=== PATIENT | male | born 1930 | race Caucasian/White ===

== ENCOUNTER → 2018-03-07 | Outpatient (CLI) | payer OTHER, MEDICARE ==
[~2018-03-07] MED LIST: ASPIR 8181 MG PO; HYDROCODONE-AP1 EAC6 PO; MIRALAX17 GM PO; XARELTO10 M1 PO; [UNRECOGNIZED DRUG - OTHER]
== END ==
LOC: CAT 09:13
DX: J98.11 Atelectasis (principal); N28.1 Cyst of kidney, acquired; K80.80 Other cholelithiasis without obstruction; E04.1 Nontoxic single thyroid nodule; R91.8 Other nonspecific abnormal finding of lung field; R59.0 Localized enlarged lymph nodes

== ENCOUNTER 2018-07-09 16:41 | Emergency (ER) | payer OTHER, MEDICARE ==
[~2018-07-09] VITALS: Ht 182.9 cm; Wt 77.1 kg
[2018-07-09] MEDS ORDERED: CARAFATE 1 GM TA1 G1 PO (17:29)
[2018-07-09] MEDS ORDERED: PROTONIX40 MG PO (17:29)
== END 2018-07-09 18:05 | disposition home or self-care (01) ==
LOC: ER 16:41
DX: K20.9 Esophagitis, unspecified (principal); M19.90 Unspecified osteoarthritis, unspecified site; Z87.891 Personal history of nicotine dependence

== ENCOUNTER 2018-07-14 10:33 | Inpatient (IN) | payer OTHER, MEDICARE ==
[~2018-07-14] VITALS: Ht 175.3 cm; Wt 70.3 kg
--- NOTE | ~2018-07-14 | EKG ---
[address] [address] ELECTROCARDIOGRAM REPORT Name: ADRIEL QUINTERO Room #: 240-P DIS IN M.R.#: [id number] Admission: 07/14/18 Attend Phys: Umang Cruz MD Discharge: 07/21/18 Date of : 32 Report #: [id number] THIS REPORT FOR: //name// [facility] Test Date: 2018-07-21 Test Time: 11:01:28 Pat Name: ADRIEL QUINTERO Department: Room: 240 P Gender: M Roll Capper: Maryjane PAYNE : 1930 Requested By: Gabino Darby Order Number: [id number] MD: Elier Paulson Measurements Intervals [place] Rate: 86 P: 63 WV: 193 QRS: 70 QRSD: 92 T: 85 QT: 322 QTc: 385 Interpretive Statements Sinus tachycardia Motion artifact Compared to ECG 07/14/2018 10:53:35 Sinus rhythm no longer present ST (T wave) deviation no longer present Electronically Signed On 07-22-2018 17:04:46 CDT by Elier Paulson [email or web address] <ELECTRONICALLY SIGNED> By: Elier Paulson MD 07/22/18 1704 110 110 Elier Paulson MD /EPI
--- NOTE | ~2018-07-14 | EKG ---
[address] [address] ELECTROCARDIOGRAM REPORT Name: ADRIEL QUINTERO Room #: 240-P DIS IN M.R.#: [id number] Admission: 07/14/18 Attend Phys: Umang Cruz MD Discharge: 07/21/18 Date of : 32 Report #: [id number] THIS REPORT FOR: //name// [facility] Test Date: 2018-07-21 Test Time: 11:38:27 Pat Name: ADRIEL QUINTERO Department: Room: 240 P Gender: M Director Medical Safety: Maryjane PAYNE : 1930 Requested By: Gabino Darby Order Number: [id number] MD: Elier Paulson Measurements Intervals [place] Rate: 94 P: 65 NE: 169 QRS: 71 QRSD: 92 T: 83 QT: 311 QTc: 389 Interpretive Statements Sinus rhythm Atrial premature complex Low voltage, precordial leads Compared to ECG 07/14/2018 10:53:35 Atrial premature complex(es) now present Low QRS voltage now present ST (T wave) deviation no longer present Electronically Signed On 07-22-2018 17:05:06 CDT by Elier Paulson [email or web address] <ELECTRONICALLY SIGNED> By: Elier Paulson MD 07/22/18 1705 1138 1138 Elier Paulson MD /EPI
--- NOTE | ~2018-07-14 | EKG ---
[address] [address] ELECTROCARDIOGRAM REPORT Name: ADRIEL QUINTERO Room #: 240-P DIS IN M.R.#: [id number] Admission: 07/14/18 Attend Phys: Umang Cruz MD Discharge: 07/21/18 Date of : 32 Report #: [id number] THIS REPORT FOR: //name// [facility] Test Date: 2018-07-21 Test Time: 12:15:14 Pat Name: ADRIEL QUINTERO Department: Room: 240 P Gender: M Case Operator: Maryjane PAYNE : 1930 Requested By: Gabino Darby Order Number: [id number] MD: Elier Paulson Measurements Intervals [place] Rate: 68 P: [place]: QRS: 73 QRSD: 93 T: 86 QT: 335 QTc: 357 Interpretive Statements Sinus with PACs Low voltage, precordial leads Compared to ECG 07/14/2018 10:53:35 Low QRS voltage now present ST (T wave) deviation no longer present Electronically Signed On 07-22-2018 17:05:35 CDT by Elier Paulson [email or web address] <ELECTRONICALLY SIGNED> By: Elier Paulson MD 07/22/18 1705 1215 Elier Paulson MD /EPI
--- NOTE | ~2018-07-14 | HC ---
[facility] [place] [place] [address] CONSULTATION Name: ADRIEL QUINTERO Room #: 354-P ADM IN M.R.#: [id number] Admission: 07/14/18 Attend Phys: Umang Cruz MD Discharge: Date of : 32 Report #: [id number] THIS REPORT FOR: //name// CC: Umang Cruz DATE OF SERVICE: 07/16/2018 REASON FOR CONSULTATION: Elevated creatinine. HISTORY OF PRESENT ILLNESS: An 87-year-old patient, very hard of hearing, very poor historian. Family is in the room helping to some degree with the details. The patient has a 1-week history of difficulty with swallowing, shortness of breath, was initially treated with doxycycline, his throat tightened and he developed a rash. He was treated with a second antibiotic with little relief, became progressively short winded and eventually was admitted to the hospital 2 days ago. The rash has improved, but he has been found to have a creatinine of 3, elevated from prior baseline in our records at this hospital of 1.6 two years ago. He has had clearcut prosthetic hypertrophy symptoms with difficulty with urination, hesitancy, urgency and has had for some time. These symptoms have also been worsening. He has had trouble with intake as well over the last week or so. He has received some IV fluids since being admitted and also diagnosed with pneumonitis and there is swelling and lymphadenopathy about the head and neck as well as thyroid abnormalities as well. PAST MEDICAL HISTORY: He has had previous femur fracture. 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 Home medications have included Xarelto, I am unclear as to the indication for that; aspirin, hydrocodone. ALLERGIES: REPORTED TO DOXYCYCLINE AND PENICILLIN. SOCIAL HISTORY: He was a former smoker. Occasional drink of alcohol. REVIEW OF SYSTEMS: GENERAL: He has been feeling poorly. EYES: His vision has been reasonably good. ENT: His hearing is very poor. He has had a lot of trouble with swallowing, swelling in his neck, shortness of breath. ENDOCRINE: No history of diabetes. RESPIRATORY: He has become progressively short winded with wheezing. CARDIAC: No history of ME, chest pain, angina. GASTROINTESTINAL: Poor intake and appetite. GENITOURINARY: He has had the frequency and urgency and difficulty with urination. NEUROLOGIC: Just generalized weakness. [facility] [address] [place] [address] CONSULTATION Name: ADRIEL QUINTERO Room #: 354-P [facility] IN .R.#: [id number] Admission: 07/14/18 Attend Phys: Umang Cruz MD Discharge: Date of : 32 Report #: [id number] PHYSICAL EXAMINATION: GENERAL: This is an elderly, chronically ill-appearing gentleman, currently blood pressure is 157/77. SKIN: Shows an erythematous truncal rash. SKELETAL: Well developed, well nourished. HEENT: Extraocular movements are full. Vision intact. Hearing is poor. Mucous membranes are dry. Neck is somewhat stiff. CHEST: Shows diffuse wheezing. HEART: Regular, but distant. ABDOMEN: Soft and nontender. EXTREMITIES: Show trace peripheral edema. LABORATORY DATA: No urinalysis available. Hemoglobin 11.9, sodium 140, potassium 4.2, chloride 107, bicarbonate 16, creatinine 3. White count 10.7, hemoglobin 11.9. ASSESSMENT AND PLAN: 1. Renal insufficiency. I believe this is likely largely chronic. I am unsure though his renal sonogram did show bilateral caliectasis suggestive of obstruction, possibly he is not emptying his bladder. We will place a Christy for completeness. I will give him some IV fluids with bicarb as he has developed a metabolic acidosis as well. He will need an ENT consult. I am little worried about generalized lymphoma. He has lymphadenopathy in the abdomen, the mediastinum and the head and neck, and the axillary regions. Systemic infections could certainly be playing some role here as well. He also has thyroid abnormalities and difficulty swallowing and certainly an infection in the head and neck region could be playing a large role in this case as well. For completeness, we will get urinalysis, paraprotein studies, urine protein studies, and possibly further workup for pulmonary renal syndromes if indicated. We will follow along. By: 1713 0131 Grant Odonnell MD /nt
--- NOTE | ~2018-07-14 | EKG ---
[facility] [address] [facility] [place] [address] ELECTROCARDIOGRAM REPORT Name: ADRIEL QUINTERO Room #: 240-P DIS IN M.R.#: [id number] Admission: 07/14/18 Attend Phys: Umang Cruz MD Discharge: 07/21/18 Date of : 32 Report #: [id number] THIS REPORT FOR: //name// [facility] Test Date: 2018-07-21 Test Time: 10:00:59 Pat Name: ADRIEL QUINTERO Department: Room: 240 P Gender: M In Home Sales Representative: MARINA : 1930 Requested By: Gabino Darby Order Number: [id number] MD: Elier Paulson Measurements Intervals [place] Rate: 151 P: [place]: QRS: 62 QRSD: 111 T: 11 QT: 274 QTc: 435 Interpretive Statements Atrial fibrillation with rapid V-rate Compared to ECG 07/14/2018 10:53:35 Sinus rhythm no longer present Electronically Signed On 07-22-2018 17:03:50 CDT by Elier Paulson [email or web address] <ELECTRONICALLY SIGNED> By: Elier Paulson MD 07/22/18 1703 [address] Paulson MD /PABLO
--- NOTE | ~2018-07-14 | EKG ---
[facility] [address] [place] [address] ELECTROCARDIOGRAM REPORT Name: ADRIEL QUINTERO Room #: 240-P ADM IN M.R.#: [id number] Admission: 07/14/18 Attend Phys: Umang Cruz MD Discharge: Date of : 32 Report #: [id number] THIS REPORT FOR: //name// [facility] Test Date: 2018-07-21 Test Time: 10:00:59 Pat Name: ADRIEL QUINTERO Department: Room: 240 P Gender: M Steward/Stewardess Third: MARINA : 1930 Requested By: Gabino Darby Order Number: [id number] MD: Measurements Intervals [place] Rate: 151 P: CT: QRS: 62 QRSD: 111 T: 11 QT: 274 QTc: 435 Interpretive Statements Atrial fibrillation with rapid V-rate Ventricular premature complex Minimal ST depression, inferior leads Compared to ECG 07/14/2018 10:53:35 Ventricular premature complex(es) now present Sinus rhythm no longer present ST (T wave) deviation still present [email or web address] By: [address] [facility] Epiphany Epiphany, /EPI
--- NOTE | ~2018-07-14 | 2DMMODE ---
[facility] [place] [address] 2 D/M-MODE ECHOCARDIOGRAM Name: ADRIEL QUINTERO Room #: 240-P ADM IN ..#: [id number] Admission: 07/14/18 Attend Phys: Umang Cruz, Discharge: Date of : 32 Date of Service: 07/21/18 1212 Report #: [id number] THIS REPORT FOR: //name// APPROVED REPORT Study performed: 07/21/2018 11:09:36 EXAM: Limited 2D, Doppler, and color-flow Echocardiogram Patient Location: ICU Room #: 240 Status: routine BSA: 1.85 HR: 61 bpm BP: 74/49 mmHg Rhythm: NSR Other Information Study Quality: Fair Technically limited study due to very limited window availability, unable to position, in ICU on vent.. Indications Limited echo status post cardiac arrest x3. Tricuspid Valve TR Peak Ronald.: 3.70 m/s RAP Estimate: 10.00 mmHg TR Peak Gr.: 54.00 mmHg PA Pressure: 55.00 mmHg Left Ventricle The left ventricle is normal size. Left ventricular systolic function is normal. LVEF is 50-55%. Right Ventricle The right ventricle is normal size. The right ventricular systolic function is normal. Aortic Valve The aortic valve is normal in structure. No aortic regurgitation is present. There is no aortic valvular stenosis. Mitral Valve The mitral valve is normal in structure. Trace mitral regurgitation. Tricuspid Valve [facility] [address] [place] [address] 2 D/M-MODE ECHOCARDIOGRAM Name: ADRIEL QUINTERO Room #: 240-P ADM IN M.R.#: [id number] Admission: 07/14/18 Attend Phys: Umang Cruz, Discharge: Date of : 32 Date of Service: 07/21/18 121 Report #: [id number] The tricuspid valve is normal in structure. Mild to moderate tricuspid regurgitation. Estimated PAP is 55mmHg. Pericardium Small pericardial effusion noted. <Conclusion> The left ventricle is normal size. Left ventricular systolic function is normal. The right ventricle is normal size. The aortic valve is normal in structure. Trace mitral regurgitation. Mild to moderate tricuspid regurgitation. Estimated PAP is 55mmHg. <ELECTRONICALLY SIGNED> By: Luis Eduardo Lopez MD 07/21/181211 11 11 Luis Eduardo Lopez MD /INF
--- NOTE | ~2018-07-14 | O ---
[facility] [place] [address] OPERATIVE REPORT Name: ADRIEL QUINTERO Room #: 240-P [facility] IN M.R.#: [id number] Admission: 07/14/18 Attend Phys: Umang Cruz MD Discharge: 07/21/18 Date of : 32 Report #: [id number] THIS REPORT FOR: //name// CC: Umang Cruz CLINICAL HISTORY: An 88-year-old white male with acute respiratory distress. The patient was intubated with a 7.5 mm ET tube. DESCRIPTION OF PROCEDURE: The patient was laid supine. He was given total of 5 mL of Diprivan. He was then bagged. A GlideScope was then used to visualize the vocal cord. A 7.5 mm ET tube was placed with stylet without difficulty. The ET tube was secured at approximately 24 cm at the lip. Portable chest x-ray showed ET tube at 1 cm above the diana. ET tube was then withdrawn approximately 2 cm. Otherwise, the patient tolerated the procedure well. <ELECTRONICALLY SIGNED> By: Gabino Darby MD 07/22/18 1641 1459 2188 Gabino Darby MD /nt
--- NOTE | ~2018-07-14 | PATH ---
[facility] [address] [place] [address] PATHOLOGY RPT PROCEDURE Name: ADRIEL QUINTERO Room #: 240-P [facility] IN M.R.#: [id number] Admission: 07/14/18 Date of : 32 Discharge: 07/21/18 Report #: [id number] Path Case #: [id number] [facility] Accession Number: [id number] . 01 Material submitted: . LT RENAL BX . 01 Clinical history: . Difficulty breathing, R/O lymphoma, R/O Jovan's . 02 Diagnosis: Special studies report received from [facility], [address], [facility] [address] [address], on case [id number], labeled with their number [id number], dated 07/19/2018. . Specimen submitted: By Grant Odonnell MD For Kidney, biopsy . DIAGNOSIS: Acute Tubular Injury. . Mesangial Matrix Expansion, Mild. . Global Glomerulosclerosis (). . Interstitial Fibrosis and Tubular Atrophy, Moderate. . Arteriosclerosis, Severe. . Papillary Epithelial Neoplasm. . Comment: The overall biopsy findings are consistent with acute tubular injury in a background of moderate arterionephrosclerosis. In addition, the glomeruli show mild mesangial matrix expansion. While non-specific, this finding is most commonly seen in the setting of diabetes mellitus/glucose intolerance disorders. If the patient lacks such history, other associated conditions include longstanding hypertension, smoking and/or gout. There is no evidence of immune complex-mediated glomerulonephritis or paraprotein-associated renal disease. Of note, the biopsy also contains an incidental finding of a papillary epithelial neoplasm, the differential diagnosis of which includes papillary adenoma and papillary renal cell carcinoma. Because the distinction between these two entities is based on tumor size, it is not possible to definitively differentiate between these entities in a small core needle biopsy. Correlation with imaging studies is recommended to determine whether a renal mass is present. . [facility] [address] [place] [address] PATHOLOGY RPT PROCEDURE Name: ADRIEL QUINTERO Room #: 240-P DIS IN [facility].#: [id number] Admission: 07/14/18 Date of : 32 Discharge: 07/21/18 Report #: [id number] Path Case #: [id number] Clinical History: The patient is an 87 year-old male who presents with increased creatinine of approximately 7 mg/dL and lymphadenopathy. . Gross Description: Received from [facility] via [facility] ([place], [place]) are two specimen bottles, one contains formalin and the other contains Zohaib's fixative. The bottles are labeled with the patient's name (Adriel Quintero). . Received in formalin are four pieces of stevens tissue measuring 0.6 x 0.1 x 0.1 cm, 0.9 x 0.1 x 0.1 cm, 0.4 x 0.1 x 0.1 cm (fatty end) , and 0.8 x 0.1 x 0.1 cm (fatty end). Two ends are submitted for electron microscopy and the remainder of the tissue is submitted in its entirety for light microscopy. . No tissue is received in Zohaib's fixative. . Microscopic Description: LIGHT MICROSCOPY: . The renal parenchyma available for light microscopic examination is represented by approximately 90% renal cortex and 10% renal medulla. One core shows moderate fixation artifact. Up to 32 glomeruli are present, four of which are globally sclerotic. The nonsclerotic glomeruli show mild mesangial matrix expansion without hypercellularity or nodule formation. There is focal mesangiolysis and microaneurysm formation. The capillary loops appear to be thickened, with segmental holes seen on silver stain. There is no endocapillary proliferation, fibrinoid necrosis or cellular crescent formation. Moderate interstitial fibrosis and tubular atrophy is present involving approximately 30% of the cortical surface. There is no significant interstitial inflammation. The tubules are multifocally lined by an attenuated and reactive epithelium with loss of the proximal tubular brush borders. The tubular lumens show occasional hyaline protein casts without associated cellular reaction. Additionally, rare red blood cell casts are present. The arteries show severe intimal fibrosis. The arterioles show severe hyalinosis. A small well-circumscribed epithelial proliferation with papillary growth pattern is noted. A [place] red stain is negative for amyloid. Two toluidine blue-stained thick sections are prepared and show two glomeruli, one of which is globally sclerotic. The nonsclerotic glomerulus shows similar histologic characteristics as those described above. . Standard of care requirements for proper analysis of renal biopsies mandates serial sections, and PAS, Nicole silver, trichrome and SMMT stains at multiple levels. PAS stains are used to evaluate various aspects of the glomerular, tubular, and vascular basement membranes. Nicole silver stains are used to evaluate thickening, reduplication, "spiking" or [address] [address] PATHOLOGY RPT PROCEDURE Name: ADRIEL QUINTERO Room #: 240-P DIS IN M.R.#: [id number] Admission: 07/14/18 Date of : 32 Discharge: 07/21/18 Report #: [id number] Path Case #: [id number] "bubbling" of the glomerular basement membrane. Toluidine blue stained sections highlight glomerular basement membranes and demonstrates unusual types of deposits. It also reveals details of tubular epithelial cells and aids in the analysis of vascular lesions. Ceasar trichrome stains are used to evaluate interstitial fibrosis and basement membrane deposits. The SMMT stain helps evaluate basement membrane changes, immune deposits and tubulointerstitial scarring. Controls are routinely run on all special stains and are verified for acceptability. A review of the technical quality of routine slides is made before results are reported. . IMMUNOFLUORESCENCE: No tissue was submitted for immunofluorescence studies. The retrieved formalin-fixed paraffin-embedded tissue is stained for IgG, IgM, IgA, C3, and kappa and lambda light chains. All stains are negative within the glomeruli. There is no significant extraglomerular staining. [place] and lambda stain equally throughout the tubulointerstitium. . Positive and negative controls are run on all immunofluorescent stains and are verified for acceptability before results are reported. Internal antigens serve as positive controls. . ELECTRON MICROSCOPY: Two blocks are prepared. Ultrastructural examination of a glomerulus shows segmental mesangiolysis with microaneurysm formation. Otherwise, the glomerular basement membranes are uniform and of normal thickness. There are no immune complex-type electron-dense deposits within the capillary rico or the mesangium. There is mild segmental subendothelial widening. The epithelial foot processes are moderately effaced. The tubular basement membranes are without deposits. . Special procedures including immunofluorescence and electron microscopy correlate with the light microscopy findings. . Note: Some of the tests reported here may have been developed and performance characteristics determined by [facility]. They have not been cleared or approved by the U.S. Food and Drug Administration (FDA). The FDA does not require this test to go through premarket FDA review. This test is used for clinical purposes. It should not be regarded as investigational or for research. [facility] is certified under the Clinical Laboratory Improvement Amendments of 1988 (CLIA) as qualified to perform high complexity clinical laboratory testing. . Physician/Physician's office called on 07/19/2018 at 1:45 PM [facility]. . *I have reviewed the clinical history, the pertinent gross findings, all microscopic materials, discussed the case with the clinician when appropriate, and have rendered the final diagnosis. [address] [address] PATHOLOGY RPT PROCEDURE Name: ADRIEL QUINTERO Room #: 240-P DIS IN M.R.#: [id number] Admission: 07/14/18 Date of : 32 Discharge: 07/21/18 Report #: [id number] Path Case #: [id number] . CPT Codes Performed: 49428; 95418u1; 80255; 71027; 57230-UF; 59298w4 lCD Codes: I12.9, N17.9 . Final Diagnosis performed by Jc Zhu M.D. Electronically signed 07/21/2018 5:21:06 PM . . A complete copy of the report is on file. . Professional and technical services performed by [facility] at [address] [facility], [facility] [address], [place], [address]. . (AMJ 07/22/2018) . This case was prepared and proofread by Dr. Priscilla Carey and electronically signed and released by Dr. Lucero Ambriz. . (IUV:amj; 07/22/2018) . AZJ/07/22/2018 . 02 Electronically signed: . Lucero Ambriz MD, Pathologist NPI- [id number] . 01 Gross description: . The specimen is received in formalin, labeled "Etienne Chun renal". Received are four needle cores of pale stevens soft tissue ranging in length from 0.5 to 1.1 cm, with each measuring 0.1 cm in diameter. The specimen is forwarded to an outside laboratory for further processing. . Also received is a container of Zohaib's fixative, labeled "Etienne Chun renal". Received are multiple fragments of red-brown friable soft tissue measuring 0.3 x 0.2 x 0.1 cm in aggregate dimensions. The specimen is forwarded to an outside laboratory for further processing. (CAA; 07/18/2018) QAC/QAC . 02 Pathologist provided ICD-10: N17.9 . 02 CPT . 694234 Specimen Comment: A courtesy copy of this report has been sent to Specimen Comment: [phone], [phone]. [address] [address] PATHOLOGY RPT PROCEDURE Name: ADRIEL QUINTERO Room #: 240-P DIS IN M.R.#: [id number] Admission: 07/14/18 Date of : 32 Discharge: 07/21/18 Report #: [id number] Path Case #: [id number] Specimen Comment: Report sent to / DR SEN Performed at: 01 [facility] [address] [id number] MD Chirag Coreas MD Phone: [phone] Performed at: 02 [facility] [address] [id number] MD Chirag Coreas MD Phone: [phone]
--- NOTE | ~2018-07-14 | O ---
[facility] [place] [address] OPERATIVE REPORT Name: ADRIEL QUINTERO Room #: 240-P [facility] IN M.R.#: [id number] Admission: 07/14/18 Attend Phys: Umang Cruz MD Discharge: 07/21/18 Date of : 34 Report #: [id number] THIS REPORT FOR: //name// CC: Umang Cruz PROCEDURE: Left femoral arterial line placement. CLINICAL HISTORY: An 88-year-old white male with acute respiratory failure and shock. He is in need of hemodynamic monitoring. DESCRIPTION OF PROCEDURE: The left groin area was shaved with a shaver. The area was then cleansed with Betadine and chlorhexidine solution. Then, the area was covered with a sterile cover. A 1% lidocaine was used for local anesthetic. I was able to feel the left femoral artery pulse without difficulty. An 18-gauge needle was then used to locate the femoral artery. After having located the femoral artery, guidewire was placed over the needle. Needle was then withdrawn. A small incision was made at the skin and a small dilator was then introduced over the guidewire. The dilator was then withdrawn. Then, an Arrow femoral artery catheter was then placed over the guidewire without difficulty. The area was then secured with 2-0 silk. There was some bleeding noted post procedure. Physical pressure was applied to the area with some control of the bleeding. The area was then secured with a bandage. <ELECTRONICALLY SIGNED> By: Gabino Darby MD 07/22/18 1641 1459 1659 Gabino Darby MD /nt
--- NOTE | ~2018-07-14 | EKG ---
[address] [address] ELECTROCARDIOGRAM REPORT Name: ADRIEL QUINTERO Room #: 170-6 ADM IN M.R.#: [id number] Admission: 07/14/18 Attend Phys: Umang Cruz MD Discharge: Date of : 34 Report #: [id number] THIS REPORT FOR: //name// [facility] ED Test Date: 2018-07-14 Test Time: 10:53:35 Pat Name: ADRIEL QUINTERO Department: Room: 170 Gender: M Fermenter: [id number] : [id number] Requested By: Adriel Lee Order Number: [id number] MD: Elier Paulson Measurements Intervals Panacea Rate: 82 P: GA: QRS: 38 QRSD: 92 T: 67 QT: 366 QTc: 428 Interpretive Statements sinus rhythm. Borderline ST depression, anterolateral leads Compared to ECG 02/11/2016 15:40:57 ST (T wave) deviation now present Electronically Signed On 07-14-2018 13:03:43 CDT by Elier Paulson [email or web address] <ELECTRONICALLY SIGNED> By: Elier Paulson MD 07/14/18 1303 1053 1053 Elier Paulson MD /EPI
--- NOTE | ~2018-07-14 | 2DMMODE ---
[facility] [place] [address] 2 D/M-MODE ECHOCARDIOGRAM Name: ADRIEL QUINTERO Room #: 354-P [facility] IN ..#: [id number] Admission: 07/14/18 Attend Phys: Umang Cruz, Discharge: Date of : 34 Date of Service: 07/15/18 1211 Report #: [id number] THIS REPORT FOR: //name// APPROVED REPORT Study performed: 07/15/2018 10:43:28 EXAM: Comprehensive 2D, Doppler, and color-flow Echocardiogram Patient Location: Bedside Room #: 354 Status: routine BSA: 1.93 HR: 68 bpm BP: 143/70 mmHg Rhythm: NSR Other Information Study Quality: Adequate Technically limited study due to thin body habitus, limited cooperation, heavy breathing and lung artifact. Indications Short of breath. Rule out CHF. 2D Dimensions RVDd: 36.62 mm IVSd: 10.64 (7-11mm) LVOT Diam: 20.73 (18-24mm) LVDd: 45.17 mm PWd: 8.02 (7-11mm) Ascending Ao: 36.01 (22-36mm) LVDs: 31.53 (25-40mm) Aortic Root: 37.12 mm Volumes Left Atrial Volume (Systole) Single Plane 4CH: 48.99 mL Single Plane 2CH: 56.69 mL LA ESV Index: 30.00 mL/m2 Aortic Valve AoV Peak Ronald.: 1.59 m/s AO Peak Gr.: 10.07 mmHg LVOT Max P.78 mmHg LVOT Max V: 1.48 m/s AKASH Vmax: 3.15 cm2 Mitral Valve E/A Ratio: 1.4 [facility] [place] [place] [address] 2 D/M-MODE ECHOCARDIOGRAM Name: ADRIEL QUINTERO Room #: 354-P [facility] IN [facility].#: [id number] Admission: 07/14/18 Attend Phys: Umang Cruz, Discharge: Date of : 34 Date of Service: 07/15/18 1211 Report #: [id number] MV Decel. Time: 279.42 ms MV E Max Ronald.: 0.95 m/s MV A Ronald.: 0.68 m/s MV PHT: 81.03 ms IVRT: 69.20 ms Pulmonary Valve PV Peak Ronald.: 1.25 m/s PV Peak Gr.: 6.25 mmHg Tricuspid Valve TR Peak Ronald.: 2.81 m/s RAP Estimate: 10.00 mmHg TR Peak Gr.: 31.65 mmHg PA Pressure: 42.00 mmHg Left Ventricle The left ventricle is normal size. There is normal LV segmental wall motion. There is normal left ventricular wall thickness. The left ventricular systolic function is normal. LVEF is 60-65%. Moderate diastolic dysfunction is present (pseudonormal filling). Right Ventricle The right ventricle is normal size. The right ventricular systolic function is normal. Atria The left atrium size is normal. The right atrium size is normal. Aortic Valve Aortic valve leaflets are mildly thickened. No aortic regurgitation is present. There is no aortic valvular stenosis. Mitral Valve Mitral valve leaflets are mildly thickened. Mild mitral regurgitation. Tricuspid Valve The tricuspid valve is normal in structure. Mild tricuspid regurgitation. Estimated PAP is 42mmHg. Pulmonic Valve The pulmonary valve is normal in structure. Trace pulmonic regurgitation. Great Vessels The aortic root is normal in size. The ascending aorta is normal in [facility] [address] [place] [address] 2 D/M-MODE ECHOCARDIOGRAM Name: ADRIEL QUINTERO Room #: 354-P [facility] IN ..#: [id number] Admission: 07/14/18 Attend Phys: Umang Cruz, Discharge: Date of : 34 Date of Service: 07/15/18 1211 Report #: [id number] size. IVC is dilated and collapses >50% with inspiration. Pericardium There is no pericardial effusion. <Conclusion> The left ventricle is normal size. There is normal left ventricular wall thickness. The left ventricular systolic function is normal. Moderate diastolic dysfunction is present (pseudonormal filling). The right ventricle is normal size. The left atrium size is normal. The right atrium size is normal. There is no aortic valvular stenosis. Mild mitral regurgitation. Mild tricuspid regurgitation. Estimated PAP is 42mmHg. <ELECTRONICALLY SIGNED> By: Luis Eduardo Lopez MD 07/15/181210 10 10 Luis Eduardo Lopez MD /INF
[~2018-07-14 10:33] MED LIST changes: +CARAFATE 1 GM TA1 G1 PO; +PROTONIX40 MG PO
[2018-07-14 10:47] VITALS: BP 112/64
[2018-07-14 11:52] LABS: HEMATOCRIT 33.5 % (42.0-52.0); HEMOGLOBIN 11.9 gm/dL (14.0-18.0); MCH 36.4 pg (26.0-34.0); MCHC 35.5 g/dL (28.0-37.0); MCV 102.5 fL (80.0-100.0); PLATELET COUNT 201 thou/uL (150-400); RBC 3.27 mil/uL (4.50-6.00); RDW 14.3 % (10.5-14.5); WBC 10.7 thou/uL (4.0-11.0)
[2018-07-14 12:02] LABS: CALCIUM 8.4 mg/dL (8.5-10.1); CREATININE 3.1 mg/dL (0.7-1.3); POTASSIUM 4.7 mmol/L (3.5-5.1)
[2018-07-14 12:57] LABS: ABSOLUTE NEUTROPHILS 1.6 thou/uL (1.4-8.2); ATYPICAL LYMPHS 2 %
[2018-07-14 12:59] LABS: POLYCHROMASIA OCCASIONAL
[2018-07-14 14:38] VITALS: BP 135/67
[2018-07-14 16:45] VITALS: BP 103/63
[2018-07-14 17:08] LABS: BE(vivo) -6.4 mmol/L (-2 to +3); HCO3 16.1 mmol/L (22.0-26.0); PCO2 24.6 mmHg (35.0-45.0); PO2 164.9 mmHg (80.0-100.0); pH 7.433 (7.360-7.450); sO2 99.2 % (92.0-98.0)
[2018-07-14 17:11] VITALS: BP 107/60
[2018-07-14 20:08] VITALS: BP 111/66
[2018-07-15 00:37] VITALS: BP 117/66
[2018-07-15 05:07] VITALS: BP 135/75
[2018-07-15 05:59] LABS: ALBUMIN 3.1 g/dL (3.4-5.0); CALCIUM 7.4 mg/dL (8.5-10.1); POTASSIUM 4.2 mmol/L (3.5-5.1); TOTAL BILIRUBIN 0.5 mg/dL (<0.1-1.0); TOTAL PROTEIN 5.9 g/dL (6.4-8.2)
[2018-07-15 07:38] VITALS: BP 143/70
[2018-07-15 11:30] VITALS: BP 135/72
[2018-07-15 15:30] VITALS: BP 131/62
[2018-07-15 19:15] VITALS: BP 151/76
[2018-07-16 04:35] VITALS: BP 171/79
[2018-07-16 06:46] LABS: CALCIUM 7.4 mg/dL (8.5-10.1); POTASSIUM 4.2 mmol/L (3.5-5.1)
[2018-07-16 07:42] VITALS: BP 157/77
[2018-07-16 16:34] VITALS: BP 145/81
[2018-07-16 17:51] LABS: URINE BILIRUBIN NEGATIVE (Negative); URINE BLOOD 3+ (Negative); URINE CLARITY CLEAR; URINE COLOR YELLOW; URINE GLUCOSE-RANDOM* NEGATIVE (Negative); URINE KETONES NEGATIVE (Negative); URINE LEUKOCYTES-REFLEX NEGATIVE (Negative); URINE NITRITE-REFLEX NEGATIVE (Negative); URINE PROTEIN (DIPSTICK) 1+ (Negative); URINE UROBILINOGEN 0.2 E.U./dl (0.2-1.0)
[2018-07-16 17:56] LABS: PROT/CREAT RATIO 1.3; URINE PROTEIN-RANDOM* 76.4 mg/dL (<11.9)
[2018-07-16 17:59] LABS: CASTS None Seen /LPF (None Seen); CRYSTALS None Seen /LPF (None Seen); SQUAMOUS None Seen /LPF (0-3); URINE RBC >20 Many /HPF (0-2); URINE WBC-REFLEX None Seen /HPF (0-5)
[2018-07-16 20:05] VITALS: BP 159/81
[2018-07-17 04:20] VITALS: BP 154/76
[2018-07-17 05:49] LABS: ALBUMIN 2.6 g/dL (3.4-5.0); PHOSPHORUS 9.1 mg/dL (2.5-4.9); POTASSIUM 5.1 mmol/L (3.5-5.1)
[2018-07-17 05:51] LABS: CREATININE 5.1 mg/dL (0.7-1.3)
[2018-07-17 07:26] VITALS: BP 158/82
[2018-07-17 11:37] VITALS: BP 148/68
[2018-07-17 11:39] LABS: HEMATOCRIT 30.9 % (42.0-52.0); HEMOGLOBIN 10.8 gm/dL (14.0-18.0); MCH 36.5 pg (26.0-34.0); MCV 104.1 fL (80.0-100.0); PLATELET COUNT 249 thou/uL (150-400); RBC 2.96 mil/uL (4.50-6.00); RDW 14.7 % (10.5-14.5); WBC 9.8 thou/uL (4.0-11.0)
[2018-07-17 11:52] LABS: APTT 28.4 Seconds (24.5-32.8); PROTIME 10.1 Seconds (9.3-11.4)
[2018-07-17 14:38] LABS: ABSOLUTE NEUTROPHILS 2.5 thou/uL (1.4-8.2); ANISOCYTOSIS 1+; TOXIC GRANULATION SLIGHT
[2018-07-17 16:20] VITALS: BP 155/78
[2018-07-17 19:30] VITALS: BP 161/79
[2018-07-17 23:40] VITALS: BP 167/84
[2018-07-18 03:30] VITALS: BP 180/86
[2018-07-18 06:11] LABS: HEMOGLOBIN 10.5 gm/dL (14.0-18.0); MCH 36.1 pg (26.0-34.0); MCV 103.2 fL (80.0-100.0); PLATELET COUNT 263 thou/uL (150-400); RBC 2.91 mil/uL (4.50-6.00); RDW 14.7 % (10.5-14.5); WBC 9.4 thou/uL (4.0-11.0)
[2018-07-18 06:32] LABS: ALBUMIN 2.8 g/dL (3.4-5.0); PHOSPHORUS 11.9 mg/dL (2.5-4.9); POTASSIUM 5.9 mmol/L (3.5-5.1)
[2018-07-18 06:35] LABS: CREATININE 6.9 mg/dL (0.7-1.3)
[2018-07-18 07:37] VITALS: BP 162/84
[2018-07-18 07:56] VITALS: BP 169/81
[2018-07-18 08:43] LABS: ABSOLUTE NEUTROPHILS 2.4 thou/uL (1.4-8.2)
[2018-07-18 08:45] LABS: ATYPICAL LYMPHS 2 %
[2018-07-18 08:46] LABS: ANISOCYTOSIS 1+; MACROCYTES 1+; OVALOCYTES FEW
[2018-07-18 12:11] LABS: KAPPA FREE LIGHT CHAINS 145.1 mg/L (3.3-19.4); KAPPA/LAMBDA RATIO 2.32 (0.26-1.65); LAMBDA FREE LIGHT CHAINS 62.5 mg/L (5.7-26.3)
[2018-07-18 16:17] VITALS: BP 169/81
[2018-07-18 17:21] VITALS: BP 172/87
[2018-07-18 19:48] VITALS: BP 159/82
[2018-07-19 03:50] VITALS: BP 163/74
[2018-07-19 07:07] VITALS: BP 157/79
[2018-07-19 11:07] VITALS: BP 151/73
[2018-07-19 12:26] LABS: CALCIUM 7.4 mg/dL (8.5-10.1); POTASSIUM 5.1 mmol/L (3.5-5.1)
[2018-07-19 12:28] LABS: CREATININE 4.8 mg/dL (0.7-1.3)
[2018-07-19 17:06] VITALS: BP 150/73
[2018-07-19 19:22] VITALS: BP 143/72
[2018-07-20] VITALS (10 sets, daily range): BP systolic 94–140; BP diastolic 48–71
[2018-07-20 04:33] LABS: HEMATOCRIT 33.9 % (42.0-52.0); HEMOGLOBIN 11.4 gm/dL (14.0-18.0); MCH 34.4 pg (26.0-34.0); MCHC 33.6 g/dL (28.0-37.0); MCV 102.4 fL (80.0-100.0); RBC 3.31 mil/uL (4.50-6.00); RDW 14.4 % (10.5-14.5); WBC 7.8 thou/uL (4.0-11.0)
[2018-07-20 04:52] LABS: ALBUMIN 2.7 g/dL (3.4-5.0); CALCIUM 7.6 mg/dL (8.5-10.1); PHOSPHORUS 5.8 mg/dL (2.5-4.9); POTASSIUM 4.7 mmol/L (3.5-5.1)
[2018-07-21] VITALS (84 sets, daily range): BP systolic 46–233; BP diastolic 19–124
[2018-07-21 04:20] LABS: BE(vivo) -1.7 mmol/L (-2 to +3); HCO3 22.1 mmol/L (22.0-26.0); PCO2 34.1 mmHg (35.0-45.0); PO2 77.4 mmHg (80.0-100.0); sO2 95.9 % (92.0-98.0)
[2018-07-21 06:19] LABS: ALBUMIN 1.9 g/dL (3.4-5.0); CALCIUM 7.4 mg/dL (8.5-10.1); CREATININE 4.6 mg/dL (0.7-1.3); PHOSPHORUS 7.5 mg/dL (2.5-4.9)
[2018-07-21 08:24] LABS: HCO3 19.5 mmol/L (22.0-26.0); PCO2 48.7 mmHg (35.0-45.0); PO2 103.1 mmHg (80.0-100.0); sO2 96.6 % (92.0-98.0)
[2018-07-21 10:00] LABS: BE(vivo) -14.4 mmol/L (-2 to +3); HCO3 15.8 mmol/L (22.0-26.0); PCO2 58.9 mmHg (35.0-45.0); PO2 273.6 mmHg (80.0-100.0); pH 7.047 (7.360-7.450); sO2 99.3 % (92.0-98.0)
[2018-07-21 10:10] LABS: HEMATOCRIT 27.9 % (42.0-52.0); MCH 35.1 pg (26.0-34.0); MCHC 32.7 g/dL (28.0-37.0); MCV 107.3 fL (80.0-100.0); RBC 2.6 mil/uL (4.50-6.00); RDW 15.1 % (10.5-14.5); WBC 5.9 thou/uL (4.0-11.0)
[2018-07-21 10:13] LABS: HEMOGLOBIN 9.1 gm/dL (14.0-18.0)
[2018-07-21 10:47] LABS: CALCIUM 7.7 mg/dL (8.5-10.1); CREATININE 5.3 mg/dL (0.7-1.3); POTASSIUM 5.9 mmol/L (3.5-5.1)
[2018-07-21 10:57] LABS: BE(vivo) -11.1 mmol/L (-2 to +3); HCO3 17.3 mmol/L (22.0-26.0); PCO2 50.8 mmHg (35.0-45.0); PO2 101.2 mmHg (80.0-100.0); sO2 95.7 % (92.0-98.0)
[2018-07-21 10:57] LABS: ALBUMIN 1.7 g/dL (3.4-5.0); TOTAL BILIRUBIN 0.8 mg/dL (<0.1-1.0); TOTAL PROTEIN 5.1 g/dL (6.4-8.2)
[2018-07-21 11:53] LABS: BE(vivo) -14.3 mmol/L (-2 to +3); PCO2 51.5 mmHg (35.0-45.0); PO2 115.8 mmHg (80.0-100.0); sO2 96.4 % (92.0-98.0)
[2018-07-21 11:55] LABS: pH 7.083 (7.360-7.450)
[2018-07-21 12:02] LABS: ALBUMIN 1.5 g/dL (3.4-5.0); CALCIUM 7.6 mg/dL (8.5-10.1); CREATININE 5.3 mg/dL (0.7-1.3); PHOSPHORUS 15.2 mg/dL (2.5-4.9)
[2018-07-21 12:03] LABS: HEMOGLOBIN 8.1 gm/dL (14.0-18.0); MCH 34.9 pg (26.0-34.0); MCHC 32.9 g/dL (28.0-37.0); MCV 106.3 fL (80.0-100.0); RBC 2.32 mil/uL (4.50-6.00); WBC 4.1 thou/uL (4.0-11.0)
[2018-07-21 12:05] LABS: HEMATOCRIT 24.6 % (42.0-52.0); RDW 15.4 % (10.5-14.5)
[2018-07-21 12:14] LABS: CALCIUM 7.1 mg/dL (8.5-10.1); CREATININE 5.4 mg/dL (0.7-1.3)
[2018-07-21 12:15] LABS: MAGNESIUM 3.1 mg/dL (1.8-2.4)
[2018-07-21 12:22] LABS: POTASSIUM 6.7 mmol/L (3.5-5.1); POTASSIUM 6.9 mmol/L (3.5-5.1)
[2018-07-21 12:50] LABS: URINE CREATININE-RANDOM* 89.4 mg/dL
[2018-07-21 13:18] LABS: BE(vivo) -12.1 mmol/L (-2 to +3); HCO3 17.5 mmol/L (22.0-26.0); PCO2 61.9 mmHg (35.0-45.0); PO2 131.3 mmHg (80.0-100.0); sO2 97.2 % (92.0-98.0)
[2018-07-21 13:19] LABS: pH 7.069 (7.360-7.450)
[2018-07-21 16:07] LABS: HEP B SURFACE Ab(ANTI-HBS Non Reactive (()); HEPATITIS B SURFACE AG Negative (Negative)
[2018-07-22 17:09] LABS: GLOBULIN TOTAL 2.4 g/dL (2.2-3.9); M-SPIKE Not Observed g/dL (Not Observed)
== END 2018-07-21 16:55 | DRG 208 ==
LOC: ER 10:33 → EROBS 12:32 → 3W 12:32 → ICU 07-20 18:34
PROVIDERS: Emergency Medicine; Family Medicine; Hospitalist; Internal Medicine Nephrology; Internal Medicine Pulmonary Disease; Pediatrics
PROC: 5A09357 Assistance with Respiratory Ventilation, Less than 24 Consecutive Hours, Continuous Positive Airway Pressure (ICD-10-PCS; principal; 2018-07-14)
PROC: 0TB13ZX Excision of Left Kidney, Percutaneous Approach, Diagnostic (ICD-10-PCS; 2018-07-18)
PROC: 02HV33Z Insertion of Infusion Device into Superior Vena Cava, Percutaneous Approach (ICD-10-PCS; 2018-07-18)
PROC: 5A1D70Z Performance of Urinary Filtration, Intermittent, Less than 6 Hours Per Day (ICD-10-PCS; 2018-07-18)
PROC: B5181ZA Fluoroscopy of Superior Vena Cava using Low Osmolar Contrast, Guidance (ICD-10-PCS; 2018-07-18)
PROC: B548ZZA Ultrasonography of Superior Vena Cava, Guidance (ICD-10-PCS; 2018-07-18)
PROC: 5A1D70Z Performance of Urinary Filtration, Intermittent, Less than 6 Hours Per Day (ICD-10-PCS; 2018-07-19)
PROC: 5A09357 Assistance with Respiratory Ventilation, Less than 24 Consecutive Hours, Continuous Positive Airway Pressure (ICD-10-PCS; 2018-07-21)
PROC: 5A1D70Z Performance of Urinary Filtration, Intermittent, Less than 6 Hours Per Day (ICD-10-PCS; 2018-07-21)
PROC: 4A133J1 Monitoring of Arterial Pulse, Peripheral, Percutaneous Approach (ICD-10-PCS; 2018-07-21)
PROC: 4A133B1 Monitoring of Arterial Pressure, Peripheral, Percutaneous Approach (ICD-10-PCS; 2018-07-21)
PROC: 04HY32Z Insertion of Monitoring Device into Lower Artery, Percutaneous Approach (ICD-10-PCS; 2018-07-21)
PROC: 5A1935Z Respiratory Ventilation, Less than 24 Consecutive Hours (ICD-10-PCS; 2018-07-21)
PROC: 0BH17EZ Insertion of Endotracheal Airway into Trachea, Via Natural or Artificial Opening (ICD-10-PCS; 2018-07-21)
DX: J69.0 Pneumonitis due to inhalation of food and vomit (principal); J96.01 Acute respiratory failure with hypoxia; N17.0 Acute kidney failure with tubular necrosis; N18.6 End stage renal disease; J36 Peritonsillar abscess; J02.9 Acute pharyngitis, unspecified; M19.90 Unspecified osteoarthritis, unspecified site; E04.1 Nontoxic single thyroid nodule; K20.9 Esophagitis, unspecified; R59.1 Generalized enlarged lymph nodes; R21 Rash and other nonspecific skin eruption; M06.9 Rheumatoid arthritis, unspecified; N28.1 Cyst of kidney, acquired; Z23 Encounter for immunization; Z87.891 Personal history of nicotine dependence; Z87.81 Personal history of (healed) traumatic fracture; Z79.01 Long term (current) use of anticoagulants; Z79.82 Long term (current) use of aspirin; Z79.899 Other long term (current) drug therapy; Z88.0 Allergy status to penicillin; Z88.8 Allergy status to other drugs, medicaments and biological substances
CPT/HCPCS: 10080; 10203; 27000; 32100; 85014